=== PATIENT | male | born 1975 | race Caucasian/White ===

== ENCOUNTER 2021-07-19 20:14 | Emergency (ER) | payer SELFPAY ==
[~2021-07-19] VITALS: Ht 182.9 cm; Wt 91.0 kg
[2021-07-19] MEDS ORDERED: NALO4SPR BOTHNSTRLS (22:41)
[2021-07-19 23:49] VITALS: BP 120/68
== END 2021-07-19 23:49 | disposition home or self-care (01) ==
LOC: ER 20:14
DX: T40.601A Poisoning by unspecified narcotics, accidental (unintentional), initial encounter (principal); I49.9 Cardiac arrhythmia, unspecified; J45.909 Unspecified asthma, uncomplicated; Y92.522 Railway station as the place of occurrence of the external cause
CPT/HCPCS: 71045; 93005; 99283